=== PATIENT | male | born 1935 | race Caucasian/White ===

== ENCOUNTER 2016-10-25 08:15 | Inpatient (IN) | payer OTHER, MEDICARE ==
--- NOTE | 2016-10-25 08:29 | EDPHY ---
H & P Stated Complaint: mechanical fall L femur pain Time Seen by Provider: 10/25/16 08:18 HPI/ROS: CHIEF COMPLAINT: Mechanical fall, left hip pain HISTORY OF PRESENT ILLNESS: The patient presents to the ED with complaints of ongoing left hip pain following a mechanical fall last night. The patient did not strike his head or lose consciousness. In the ED he complains of a moderate pain in his left proximal femur. He denies associated numbness or weakness. He specifically denies headache, neck pain, chest pain, back pain or additional extremity complaints. The patient has remote history of knee surgery 30 years ago. The patient has no significant past medical history and denies taking any medications. REVIEW OF SYSTEMS: A comprehensive 10 point review of systems is otherwise negative aside from elements mentioned in the history of present illness. Source: Patient, Family Exam Limitations: No limitations - Personal History Current Tetanus Diphtheria and Acellular Pertussis (TDAP): Yes - Medical/Surgical History Hx Asthma: No Hx Chronic Respiratory Disease: No Hx Diabetes: No Hx Cardiac Disease: No Hx Renal Disease: No Hx Cirrhosis: No Hx Alcoholism: No Hx HIV/AIDS: No Hx Splenectomy or Spleen Trauma: No Other PMH: prostatectomy - Social History Smoking Status: Former smoker - Physical Exam Exam: General Appearance: Alert, no distress Head: Atraumatic Eyes: Pupils equal, round, reactive ENT, Mouth: No hemotympanum, no oral trauma Neck: Nontender, trachea midline Respiratory: No chest wall tender, subcutaneous air, lungs clear bilaterally Cardiovascular: Regular rate and rhythm Abdomen: Abdomen is soft and nontender, pelvis stable Skin: No lacerations, No abrasion Back: No midline T/L/S pain Extremities: Painful active and passive range of motion noted at the left hip Neurological: A&Ox3, normal motor function, normal sensory exam Constitutional: Initial Vital Signs Temperature (C) 36.8 C 10/25/16 08:18 Heart Rate 83 10/25/16 08:18 Respiratory Rate 18 10/25/16 08:18 Blood Pressure 138/98 H 10/25/16 08:18 O2 Sat (%) 92 10/25/16 08:18 O2 Delivery Mode Room Air Allergies/Adverse Reactions: No Known Allergies Allergy (Unverified 10/25/16 08:18) Home Medications: Medication Instructions Recorded NK [No Known Home Meds] 10/25/16 Medical Decision Making - Diagnostics EKG Interpretation: EKG: Complete interpretation has been separately recorded in the [facility] archive. Summary impression: Sinus rhythm, rate 74 Imaging: Left hip x-ray: Images reviewed by myself, nondisplaced left intertrochanteric femur fracture. One-view chest x-ray: Images reviewed by myself, negative for acute disease ED Course/Re-evaluation: The patient presents to the ED for evaluation of acute left hip pain following a mechanical fall. The patient had an IV established. He received 4 mg of IV morphine and a L of normal saline. An x-ray was obtained which demonstrates a left intertrochanteric femur fracture which is nondisplaced. The patient has no evidence of additional traumatic injury. Preoperative chest x-ray and EKG are unremarkable. 9:15 a.m.. Consultation is made with Dr. Solo Reyes who is on-call for Orthopedic surgery who reviewed the patient's x-rays. The patient will be taken to the operating room later this evening for ORIF. Dr. Reyes has requested the patient be kept NPO today. 9:30 a.m.: Consultation is made with Erika Galo from the hospitalist service. The patient will be admitted to the hospitalist today pending surgical intervention this afternoon. The patient will be admitted by Dr. Armstrong. 9:40 a.m.: Patient will be admitted to the medical-surgical floor. Differential Diagnosis: Differential diagnosis considered includes hip fracture, pelvic fracture, critical anemia, arrhythmia - Data Points Laboratory Results: Laboratory Results 10/25/16 08:50 10/25/16 08:50 10/25/16 10/25/16 08:50 08:50 WBC 10.18 10^3/uL H 10^3/uL (3.80-9.50) RBC 4.89 10^6/uL 10^6/uL (4.40-6.38) Hgb 14.8 g/dL g/dL (13.7-17.5) Hct 43.0 % % (40.0-51.0) MCV 87.9 fL fL (81.5-99.8) MCH 30.3 pg pg (27.9-34.1) MCHC 34.4 g/dL g/dL (32.4-36.7) RDW 12.2 % % (11.5-15.2) Plt Count 228 10^3/uL 10^3/uL (150-400) MPV 11.2 fL fL (8.7-11.7) Neut % (Auto) 81.1 % H % (39.3-74.2) Lymph % (Auto) 12.2 % L % (15.0-45.0) [place] % (Auto) 5.2 % % (4.5-13.0) Eos % (Auto) 0.4 % L % (0.6-7.6) Baso % (Auto) 0.6 % % (0.3-1.7) Nucleat RBC Rel Count 0.0 % % (0.0-0.2) Absolute Neuts (auto) 8.26 10^3/uL H 10^3/uL (1.70-6.50) Absolute Lymphs (auto) 1.24 10^3/uL 10^3/uL (1.00-3.00) Absolute Monos (auto) 0.53 10^3/uL 10^3/uL (0.30-0.80) Absolute Eos (auto) 0.04 10^3/uL 10^3/uL (0.03-0.40) Absolute Basos (auto) 0.06 10^3/uL 10^3/uL (0.02-0.10) Absolute Nucleated RBC 0.00 10^3/uL 10^3/uL (0-0.01) Immature Gran % 0.5 % % (0.0-1.1) Immature Gran # 0.05 10^3/uL 10^3/uL (0.00-0.10) Sodium 136 mEq/L mEq/L (134-144) Potassium 4.7 mEq/L mEq/L (3.5-5.2) Chloride 103 mEq/L mEq/L (97-110) Carbon Dioxide 23 mEq/l mEq/l (22-31) Anion Gap 10 mEq/L mEq/L (8-16) BUN 14 mg/dL mg/dL (7-23) Creatinine 0.8 mg/dL mg/dL (0.7-1.3) Estimated GFR > 60 Glucose 201 mg/dL H mg/dL (70-100) Calcium 9.3 mg/dL mg/dL (8.5-10.4) Medications Given: Discontinued Medications Sodium Chloride (Ns) 1,000 mls @ 0 mls/hr IV ONCE ONE PRN Reason: Wide Open Stop: 10/25/16 08:40 Last Admin: 10/25/16 08:50 Dose: 1,000 mls Departure - Departure Disposition: [facility] Inpatient Acute Clinical Impression: Intertrochanteric fracture of left hip Qualifiers: Encounter type: initial encounter Fracture type: closed Qualified Code(s): S72.142A - Displaced intertrochanteric fracture of left femur, initial encounter for closed fracture Condition: Good
[2016-10-25] MEDS ORDERED: NS 1,000 ML IV ONE (08:39)
--- NOTE | 2016-10-25 09:04 | CPEKG ---
Heart Rate: 74 RR Interval: 811 P-R Interval: 196 QRSD Interval: 88 QT Interval: 392 QTC Interval: 435 P Maybee: 23 QRS Maybee: -5 T Wave Maybee: 15 EKG Severity - NORMAL ECG - EKG Impression: SINUS RHYTHM Electronically Signed By: Favian Morrell 25-Oct-2016 14:02:25
[2016-10-25 09:11] LABS: % IMMATURE GRANULYOCYTES 0.5 % (0.0-1.1); ABSOLUTE IMMATURE GRANULOCYTES 0.05 10^3/uL (0.00-0.10); ADD DIFF? NO; ADD MORPH? NO; ADD SCAN? NO; ATYPICAL LYMPHOCYTE FLAG 0 (0-99); FRAGMENT RBC FLAG 0 (0-99); HEMOGLOBIN 14.8 g/dL (13.7-17.5); LEFT SHIFT FLG 0 (0-99); LIPEMIA HEMOLYSIS FLAG 90 (0-99); MEAN CELL HEMOGLOBIN 30.3 pg (27.9-34.1); MEAN CELL HEMOGLOBIN CONCENTR. 34.4 g/dL (32.4-36.7); MEAN CELL VOLUME 87.9 fL (81.5-99.8); MEAN PLATELET VOLUME 11.2 fL (8.7-11.7); PLATELET CLUMPS FLAG 0 (0-99); PLATELET COUNT 228 10^3/uL (150-400); RED BLOOD CELL COUNT 4.89 10^6/uL (4.40-6.38); RED CELL DISTRIBUTION WIDTH 12.2 % (11.5-15.2)
[2016-10-25 09:28] LABS: ANION GAP 10 mEq/L (8-16); CALCIUM 9.3 mg/dL (8.5-10.4); CARBON DIOXIDE 23 mEq/l (22-31); CHLORIDE 103 mEq/L (97-110); CREATININE 0.8 mg/dL (0.7-1.3); GLOMERULAR FILTRATION RATE > 60; GLUCOSE 201 mg/dL (70-100); POTASSIUM 4.7 mEq/L (3.5-5.2); SODIUM 136 mEq/L (134-144)
[2016-10-25] MEDS ORDERED: ACETAMINOPHEN 325 MG TAB PO PRN (10:27)
[2016-10-25] MEDS ORDERED: ONDANSETRON 4 MG/2 ML VIAL IVP PRN (10:27)
[2016-10-25] MEDS ORDERED: ONDANSETRON DISINTEGRATING 4 MG TAB PO PRN (10:27)
[2016-10-25] MEDS ORDERED: BUPIVACAINE/EPI 0.5% 30 ML SDV ONE (11:11)
--- NOTE | 2016-10-25 15:46 | GHP ---
[f rep st] HISTORY AND PHYSICAL DATE OF ADMISSION: 10/25/2016 CHIEF COMPLAINT: Left hip pain after a fall. HISTORY OF PRESENT ILLNESS: This is a 81-year-old male who is visiting from [place]. He slip ped on an icy area yesterday, falling on his left hip. He had continued pain and came to the emerge ncy department. This was a mechanical fall, not syncope. He has no previous cardiac history. He i s able to walk up 2 flights of stairs without any chest pain or shortness of breath. He has no prev ious history of blood clots or bleeding problems. REVIEW OF SYSTEMS: A 10-point review of systems was obtained, and other than stated above, is negat brigdia. PAST MEDICAL HISTORY: None. MEDICATIONS: Occasional ibuprofen. SOCIAL HISTORY: No smoking or alcohol. He used to design sets for theater. Family here. FAMILY HISTORY: Reviewed and noncontributory. PHYSICAL EXAMINATION: VITAL SIGNS: Afebrile, blood pressure is 153/88, heart rate 80, oxygen satur ation 95% on room air. GENERAL: He is well-developed, in no apparent distress. HEENT: Nonicteric sclerae. Moist mucous membranes. NECK: Supple. No thyromegaly. LUNGS: Good effort. Clear to auscultation. CARDIOVASCULAR: Regular rate and rhythm. No murmurs or gallops. ABDOMEN: Positive bowel sounds, soft, nontender, nondistended. No hepatosplenomegaly. EXTREMITIES: No clubbing, cy anosis, or edema. SKIN: Without rash. Warm, dry, intact. NEUROLOGIC: Alert and oriented x3. Mo ving all 4 extremities equally. PSYCH: Normal mood and affect. LABS: CBC is essentially normal. Chemistry normal. IMAGING: Hip x-ray: Nondisplaced left intertrochanteric fracture. ASSESSMENT AND PLAN: A 81-year-old male with no past medical history, presenting with a left hip fr acture. 1. Left hip fracture. Will take him to surgery today. He has no contraindications to surgery at t his time. 2. Elevated blood pressure. Will continue to monitor, but it could be related to pain. /[id number]/MODL
[2016-10-25] MEDS ORDERED: MIDAZOLAM 2 MG/2 ML VIAL ONE (17:17)
[2016-10-25] MEDS ORDERED: LIDOCAINE 2% 5 ML SDV ONE (17:31)
[2016-10-25] MEDS ORDERED: PROPOFOL 200 MG/20 ML VIAL ONE (17:31)
[2016-10-25] MEDS ORDERED: fentaNYL 100 MCG/2 ML INJ ONE ×2 (17:31→17:57)
[2016-10-25] MEDS ORDERED: ceFAZolin 1 GM VIAL ONE ×2 (17:47)
[2016-10-25] MEDS ORDERED: DEXAMETHASONE 4 MG/ML VIAL ONE (17:57)
[2016-10-25] MEDS ORDERED: ONDANSETRON 4 MG/2 ML VIAL ONE (17:57)
[2016-10-25] MEDS ORDERED: SKIN ADHESIVE (DERMABOND) 1 EACH TP ONE (18:19)
[2016-10-25] MEDS ORDERED: KETOROLAC 30 MG/1 ML SDV ONE (18:19)
--- NOTE | 2016-10-25 19:00 | POSTOPPROG ---
Post Op Note Date of Operation: 10/25/16 Surgeon: Solo Reyes Sports Book Server: none Anesthesia: GET(General Endotracheal) Pre-op Diagnosis: Left IT fx Post-op Diagnosis: same Indication: above Procedure: TFN nail left hip Inf/Abcess present in the surg proc area at time of surgery?: No EBL: 50-100 Complications: none
--- NOTE | 2016-10-26 01:37 | GOP ---
[f rep st] OPERATIVE REPORT DATE OF OPERATION: 10/25/2016 SURGEON: Solo Reyes MD FENCE ERECTOR SUPERVISOR: None. ANESTHESIA: General. PREOPERATIVE DIAGNOSIS: Left intertrochanteric fracture. POSTOPERATIVE DIAGNOSIS: Left intertrochanteric fracture. PROCEDURE PERFORMED: FINDINGS: SPECIMENS: None. ESTIMATED BLOOD LOSS: 5 mL. INDICATIONS: This is a 81-year-old male, who fell yesterday and sustained a fracture. I counseled him on the risks and benefits of operative intervention including displacement, fracture, nonunion, malunion, need for further surgery, continued pain, infection and nerve complications, and he electe d to proceed. Informed consent was obtained and all questions answered preoperatively. DESCRIPTION OF PROCEDURE: 2 g of Ancef were administered. Positioned. Sterilely prepped and drape d in normal fashion. Time-out was performed verifying site, side, and location with agreement of e team. We made a small skin incision above the trochanter. We used a guide odilia to localize the starting po int, checking this on x-ray and then placed this in the femur. We then used the entry reamer. I th en selected an 11 mm short nail and placed this down the femur. I then placed the guide for the steven de. I made an incision there and placed this to the bone. I drilled a guidewire, checked its posit ion, selected 100, reamed this, and then placed the blade. I locked this into place and placed the distal interlocking screws through a separate small incision, drilling this. Overall had a stable c onstruct. I checked final x-rays, irrigated the wounds, and closed them with 0 Vicryl, 2-0 Vicryl, 3-0 Monocryl, and Dermabond and placed a sterile dressing. He was taken to PACU in stable condition . PROCEDURE PERFORMED: Left TFN nail and open reduction, internal fixation, left intertrochanteric hi p fracture. IMPLANTS: Synthes TFN nail, 11 mm short nail, 100 mm blade. SURGEON: Solo Reyes MD. COMPLICATIONS: None. DRAINS: None. CONDITION: Stable. /[id number]/MODL
[2016-10-26] MEDS: ceFAZolin 2 GM/DEXTROSE 100 ML IV SCH ×3 (01:51→18:05)
[2016-10-26] MEDS: ENOXAPARIN 40 MG/0.4 ML SYR SC SCH (08:50)
[2016-10-26] MEDS: traMADol 50 MG TAB PO PRN ×2 (12:49→19:13)
--- NOTE | 2016-10-26 12:53 | GCON ---
[f rep st] CONSULTATION DATE OF CONSULTATION: 10/25/2016 DIAGNOSIS: Left intertrochanteric hip fracture. CHIEF COMPLAINT: Left hip pain. HISTORY OF PRESENT ILLNESS: This is a 81-year-old male who is living in [place], he was out i [facility]. He slipped on the ice yesterday and fell. He had continued pain, difficulty walking. He w as taken to the emergency room this morning. He was worked up and diagnosed with a hip fracture. He complains only of pain in the left hip. He does have a small laceration to his forehead but he says it does not really hurt and he does not think he hit his head. REVIEW OF SYSTEMS: A 10-point review of systems was obtained and is negative other than stated abov e. PAST MEDICAL HISTORY: Denies. MEDICATIONS: Occasional ibuprofen. SOCIAL HISTORY: No smoking or alcohol. FAMILY HISTORY: Really noncontributory. PHYSICAL EXAM: GENERAL: He is alert, oriented, appropriate, in no acute distress. Generally, he is well developed, no acute distress. HEENT: Head has a small laceration over his left eye but he does not have any bruising. His head is normocephalic. Eyes are equal and reactive. His mouth shows moist mucous membranes. NECK: Supple. LUNGS: Show good effort. Symmetrical chest rise. CARDIOVASCULAR: Re gular rate and rhythm. ABDOMEN: Soft. EXTREMITIES: His upper extremities show full range of motion, no abnormalities. Warm. No edema or cyanosis. Skin is intact. The left lower extremity I did not ran ge because of the fracture. He hurts right over his left hip. He is neurovascularly intact distally. He is neurovascularly intact in the left lower extremity. Right lower extremity is without abnormal ity and rotates well. IMAGING: Hip x-ray shows nondisplaced left intertrochanteric hip fracture. ASSESSMENT: A 81-year-old with left intertrochanteric hip fracture. PLAN: I discussed with him the risks and benefits of operative intervention for this. We discussed TFN nail. Discussed risks of nerve injury, nonunion, malunion, continued pain, fracture. He elected to proceed. We will plan on taking him to the operating room. /[id number]/MODL
--- NOTE | 2016-10-26 13:43 | SOAPPROG ---
SOAP Progress Note Assessment/Plan: Assessment: s/p TFN 10/25 Plan: wbat and rom as tolerated may shower over dressing lovenox for 10days after surgery followed by ASA 325mg qday for total of 6 weeks f/u with me in 7-10days may discharge when clears PT 10/26/16 13:42 Subjective: minimal pain Objective: Vital Signs Temp Pulse Resp BP Pulse Ox 36.9 C 76 16 131/97 H 95 10/26/16 07:26 10/26/16 12:00 10/26/16 12:00 10/26/16 12:00 10/26/16 12:00 10/25/16 10/26/16 10/27/16 05:59 05:59 05:59 Intake Total 2350 325 Output Total 980 325 Balance 1370 0 dressing cdi nvi ICD10 Worksheet Patient Problems: Problems Problem Status Onset Intertrochanteric fracture of left hip Acute
--- NOTE | 2016-10-26 16:09 | HOSPPROG ---
Hospitalist Progress Note Assessment/Plan: * left hip fracture * status post pinning * possibly home tomorrow * DVT prophylaxis * Lovenox Subjective: doing well. Pain well controlled Objective: Vital Signs Temp Pulse Resp BP Pulse Ox 36.7 C 77 14 117/80 92 10/26/16 16:00 10/26/16 16:00 10/26/16 16:00 10/26/16 16:00 10/26/16 16:00 10/25/16 10/26/16 10/27/16 05:59 05:59 05:59 Intake Total 2350 1075 Output Total 980 325 Balance 1370 750 - Physical Exam Constitutional: no apparent distress, appears nourished, not in pain Eyes: anicteric sclera, EOMI Ears, Nose, Mouth, Throat: moist mucous membranes, hearing normal, ears appear normal Cardiovascular: regular rate and rhythym, no murmur, rub, or gallop Respiratory: no respiratory distress, no rales or rhonchi, clear to auscultation Skin: warm Neurologic: AAOx3 Psychiatric: interacting appropriately, not anxious, not encephalopathic, thought process linear ICD10 Worksheet Patient Problems: Problems Problem Status Onset Intertrochanteric fracture of left hip Acute
[2016-10-26] MEDS ORDERED: traMADol 50 MG TAB PO ONE (20:47)
[2016-10-26 22:59] VITALS: RESP 16
[2016-10-27] MEDS: ceFAZolin 2 GM/DEXTROSE 100 ML IV SCH (02:23)
[2016-10-27 05:27] LABS: % IMMATURE GRANULYOCYTES 0.3 % (0.0-1.1); ABSOLUTE IMMATURE GRANULOCYTES 0.03 10^3/uL (0.00-0.10); ADD DIFF? NO; ADD MORPH? NO; ADD SCAN? NO; ATYPICAL LYMPHOCYTE FLAG 0 (0-99); FRAGMENT RBC FLAG 0 (0-99); HEMATOCRIT 39.1 % (40.0-51.0); HEMOGLOBIN 13.4 g/dL (13.7-17.5); LEFT SHIFT FLG 0 (0-99); LIPEMIA HEMOLYSIS FLAG 90 (0-99); MEAN CELL HEMOGLOBIN 30.8 pg (27.9-34.1); MEAN CELL HEMOGLOBIN CONCENTR. 34.3 g/dL (32.4-36.7); MEAN CELL VOLUME 89.9 fL (81.5-99.8); MEAN PLATELET VOLUME 11.4 fL (8.7-11.7); PLATELET CLUMPS FLAG 0 (0-99); PLATELET COUNT 179 10^3/uL (150-400); RED BLOOD CELL COUNT 4.35 10^6/uL (4.40-6.38)
[2016-10-27 05:41] LABS: ANION GAP 10 mEq/L (8-16); CALCIUM 8.4 mg/dL (8.5-10.4); CARBON DIOXIDE 24 mEq/l (22-31); CHLORIDE 101 mEq/L (97-110); CREATININE 0.9 mg/dL (0.7-1.3); GLOMERULAR FILTRATION RATE > 60; GLUCOSE 196 mg/dL (70-100); POTASSIUM 4.3 mEq/L (3.5-5.2); SODIUM 135 mEq/L (134-144)
[2016-10-27] MEDS: ENOXAPARIN 40 MG/0.4 ML SYR SC SCH (08:07)
[2016-10-27] MEDS: traMADol 50 MG TAB PO PRN (08:08)
[2016-10-27 13:05] LABS: HEMOGLOBIN A1C 8.5 % (4.0-6.0)
--- NOTE | 2016-10-27 15:10 | SOAPPROG ---
SOAP Progress Note Assessment/Plan: Assessment: s/p TFN 10/25 Plan: wbat and rom as tolerated may shower over dressing lovenox for 10days after surgery followed by ASA 325mg qday for total of 6 weeks f/u with me in 7-10days he has my card for appt may discharge when clears PT 10/26/16 13:42 10/27/16 15:09 Subjective: minimal pain Objective: Vital Signs Temp Pulse Resp BP Pulse Ox 36.7 C 68 16 120/73 94 10/27/16 07:27 10/27/16 07:27 10/27/16 07:27 10/27/16 07:27 10/27/16 07:27 Laboratory Results 10/27/16 04:18 10/27/16 04:18 10/26/16 10/27/16 10/28/16 05:59 05:59 05:59 Intake Total 2350 1185 Output Total 980 575 300 Balance 1370 610 -300 dressing cdi nvi distally ICD10 Worksheet Patient Problems: Problems Problem Status Onset Intertrochanteric fracture of left hip Acute
--- NOTE | 2016-10-27 15:23 | HOSPPROG ---
Hospitalist Progress Note Assessment/Plan: * left hip fracture * status post pinning * possibly home tomorrow * New diagnosis of diabetes * will start metformin * DVT prophylaxis * Lovenox Subjective: doing well. Objective: Vital Signs Temp Pulse Resp BP Pulse Ox 36.7 C 68 16 120/73 94 10/27/16 07:27 10/27/16 07:27 10/27/16 07:27 10/27/16 07:27 10/27/16 07:27 Laboratory Results 10/27/16 04:18 10/27/16 04:18 10/26/16 10/27/16 10/28/16 05:59 05:59 05:59 Intake Total 2350 1185 Output Total 980 575 300 Balance 1370 610 -300 - Physical Exam Constitutional: no apparent distress, appears nourished, not in pain Eyes: anicteric sclera, EOMI Ears, Nose, Mouth, Throat: moist mucous membranes, hearing normal Cardiovascular: regular rate and rhythym Respiratory: no respiratory distress Neurologic: AAOx3 Psychiatric: interacting appropriately, not anxious, not encephalopathic, thought process linear ICD10 Worksheet Patient Problems: Problems Problem Status Onset Intertrochanteric fracture of left hip Acute
[2016-10-27] MEDS ORDERED: MAGNESIUM HYDROXIDE 30 ML UDCUP PO PRN (20:04)
[2016-10-27] MEDS ORDERED: BISACODYL 10 MG SUPP PR PRN (20:04)
[2016-10-27] MEDS ORDERED: POLYETHYLENE GLYCOL 3350 17 GM PKT PO PRN (20:04)
[2016-10-27] MEDS ORDERED: LACTULOSE 20 GM/30 ML UDCUP PO PRN (20:04)
[2016-10-27] MEDS: SENNOSIDES/DOCUSATE SODIUM TAB PO SCH (20:25)
[2016-10-27 23:18] VITALS: TEMP 98.3
[2016-10-28 07:19] VITALS: BP 137/80; PULSE 72; O2SAT 91
[2016-10-28] MEDS: SENNOSIDES/DOCUSATE SODIUM TAB PO SCH (08:24)
[2016-10-28] MEDS: ENOXAPARIN 40 MG/0.4 ML SYR SC SCH (08:24)
[2016-10-28] MEDS: traMADol 50 MG TAB PO PRN (08:24)
--- NOTE | 2016-10-28 11:18 | PDIAF ---
- Diagnosis Diagnosis: hip fracture Code Status: Full Code - Medication Management Discharge Medications: Medications to Continue on Transfer Enoxaparin [Lovenox 40 MG (*)] 40 mg SQ DAILY #0 syr 10/28/16 [Last Taken Unknown] metFORMIN HCL [Metformin HCl] 500 mg PO BID #0 tablet 10/28/16 [Last Taken Unknown] traMADol [Ultram 50 mg (*)] 50 mg PO Q6HRS PRN #0 tab 10/28/16 [Last Taken Unknown] Discharge Medications: Refer to the Discharge Home Medication list for PRN reason. - Orders Services needed: Physical Therapy, Occupational Therapy Diet Recommendation: no restrictions on diet - Follow Up Care Current Providers and Referrals: REBEKAH CORDOVA [Other] - As per Instructions
--- NOTE | 2016-10-28 16:50 | GDS ---
[f rep st] DISCHARGE SUMMARY DIAGNOSES: 1. Traumatic left hip fracture. 2. New diagnosis of diabetes. HISTORY OF PRESENT ILLNESS: This is a 81-year-old male who is visiting from [place]. He fell at his [place] and fractured his left hip. HOSPITAL COURSE: Patient had pinning done by Orthopedic Surgery. His postoperative course has been unremarkable. His blood sugar initially was 200 when he came in, and repeat blood sugar did show c ontinued elevation. His hemoglobin A1c came back at 8.5. This is a new diagnosis of diabetes for h im. He has been started on metformin and will follow up with his primary care doctor. He will be g ojng to a senior care facility for rehab. /[id number]/MODL
== END 2016-10-28 14:15 | DRG 482 ==
LOC: EDSEX 08:15 → F3N 10:12
PROVIDERS: ADMIT Internal Medicine; ATTEND Internal Medicine
PROC: 0QS704Z Reposition Left Upper Femur with Internal Fixation Device, Open Approach (ICD-10-PCS; principal; 2016-10-25 17:00)
DX: S72.142A Displaced intertrochanteric fracture of left femur, initial encounter for closed fracture (principal); E11.9 Type 2 diabetes mellitus without complications; W00.0XXA Fall on same level due to ice and snow, initial encounter; Z87.891 Personal history of nicotine dependence
CPT/HCPCS: 97110-GP; 97161-GP; 97165-GO; 97530-GP; 97535-GO; C1713; C1769; G8978-GP-CJ; G8979-GP-CI; G8987-GO-CK; G8988-GO-CI; J0690; J1100; J1650; J1885; J2250; J2405; J2704; J3010